=== PATIENT | male | born 1960 | race Caucasian/White ===

== ENCOUNTER 2018-05-08 06:12 | Day surgery (SDC) | payer BC ==
[2018-05-06 19:12] VITALS: BMI 29.5
[2018-05-08] MEDS ORDERED: DEXAMETHASONE SOD PHOSPHATE/PF 10 MG/ML SDV ONE (07:27)
[2018-05-08] MEDS ORDERED: ROPIVACAINE HCL 0.5% 30ML VIAL ONE (07:27)
[2018-05-08] MEDS ORDERED: MIDAZOLAM HCL 2 MG/2 ML SINGLE DOSE VIAL ONE ×2 (07:30)
[2018-05-08] MEDS ORDERED: LIDOCAINE HCL/PF 2% SDV 5ML VIAL ONE (08:00)
[2018-05-08] MEDS ORDERED: PROPOFOL 20 ML ONE ×2 (08:00→08:27)
--- NOTE | 2018-05-08 08:17 | HP ---
Satellite H - Chief Complaint Chief Complaint: left knee pain, instability - Past Medical History Allergies/Adverse Reactions: Allergies Allergy/AdvReac Type Severity Reaction Status Date / Time No Known Allergies Allergy Unverified 05/08/18 06:39 - Current Medications Current Medications: Home Medications Medication Instructions Recorded Rosuvastatin [Crestor -] 5 mg PO DAILY 05/06/18 Sildenafil Citrate [Sildenafil] 20 mg PO DAILY 05/06/18 Oxycodone HCl/Acetaminophen 1 - 2 tab PO Q6H #40 tab MDD 6 05/08/18 [Percocet 5-325 mg Tablet] Satellite Physical Exam - Physical Examination Vital Signs: Vital Signs Period Temp Pulse Resp BP Sys/River Pulse Ox Last 24 Hr 98.7 F 76 16 127/89 97 General Appearance: Well Nourished, Well Developed, Alert & Oriented x3 ENT: Clear Lung: Normal air movement Heart: Regular rate & rhythm Extremities: Other (left knee- + swelling, + ttp ,decr rom, + elpidio, + ant draw, + mcmurrays, nvi MRI + acl rupture, LMT, MMT) Neurological: Intact, Alert, Oriented Satellite Impression/Plan - Impression/Plan Impression: Left knee internal derangement Operative Procedure: left knee arthroscopy with ACL reconstruction using graftlink allograft Date to be Performed: 05/08/18
[2018-05-08] MEDS ORDERED: ceFAZolin SODIUM 1 GM VIAL ONE (08:30)
[2018-05-08] MEDS ORDERED: ceFAZolin SODIUM 1 GM VIAL IVPB ONE (08:31)
[2018-05-08] MEDS ORDERED: DEXAMETHASONE SOD PHOSPHATE 4 MG/1 ML VIAL ONE (08:36)
[2018-05-08] MEDS ORDERED: KETOROLAC TROMETHAMINE 30 MG/1 ML VIAL ONE (09:23)
--- NOTE | 2018-05-08 10:16 | OP ---
Operative Note - Note: Operative Date: 05/08/18 ([facility]) Pre-Operative Diagnosis: left knee internal derangement Operation: left knee arthroscopy with ACL reconstruction using graftlink allograft, PMM, PLM Implants: arthrex graftlink Post-Operative Diagnosis: Same as Pre-op Surgeon: Kristian Calhoun Air Lift Operator: Samir Groves Anesthesiologist/STAFFING OPERATIONS MANAGER: Jamaal Russell Anesthesia: General, Local Specimens Removed: shavings Estimated Blood Loss (mls): 5 Operative Report Dictated: Yes
[2018-05-08] MEDS ORDERED: ONDANSETRON 4 MG/2 ML VIAL IVPUSH PRN (10:30)
[2018-05-08] MEDS ORDERED: LACTATED RINGERS SOLUTION 1,000 ML IV SCH (10:30)
--- NOTE | 2018-05-08 12:16 | OP ---
DATE OF OPERATION: 05/08/2018 PREOPERATIVE DIAGNOSIS: Left anterior cruciate ligament tear. POSTOPERATIVE DIAGNOSIS: Left anterior cruciate ligament tear, plus medial and lateral meniscus tears. SURGICAL PROCEDURE: Arthroscopy, left knee, with anterior cruciate ligament reconstruction with GraftLink and partial medial and lateral meniscectomies. SURGICAL ATTENDING: Kristian Calhoun MD SECURITY FLEX UTILITY OFFICER: LINH Segovia ANESTHESIA: Regional and general.. CLOSURE: A GraftLink with appropriate buttons on either side and 3-0 nylon for skin. ESTIMATED BLOOD LOSS: Negligible. COMPLICATIONS: None. CONDITION: To recovery room in stable condition. DESCRIPTION OF OPERATIVE PROCEDURE: The patient was taken to the operating room on May 08, 2018. Regional and general anesthesia was administered by the anesthesiologist. IV Kefzol was given prophylactically prior to the case. Left lower extremity was prepped and draped in the usual sterile fashion. The superomedial and medial and lateral infrapatellar portal sites all were made with a 15 blade followed by a blunt trocar. Superomedial portal was the outflow trocar, the inferolateral portal was the scope portal, and was the inferomedial portal was the working portal. The scope was placed up to the pouch and visualized to be clean. The medial and lateral gutters were visualized to be clean, and the suprapatellar and trochlea were visualized to be intact. With valgus stress on the knee, the medial compartment was entered and medial meniscus was visualized and probed and found to have a complex tear of its posterior horn. This was debrided back to smooth stable meniscal tissues with a meniscal biter and an arthroscopic shaver. The medial femoral condyle was run and found to be basically intact. In the figure-of-4 position, the lateral compartment was entered. The lateral meniscus was visualized and probed and found to have a large flap tear posteriorly. This was debrided back to smooth stable meniscal tissues with a meniscal biter and an arthroscopic shaver. The lateral femoral condyle was run and found to be intact as was the lateral tibial plateau. At 90 degrees, the ACL was visualized to be completely torn. Its stump was debrided. A notchplasty was then performed gaining sufficient width and height to perform the procedure. A GraftLink with a semitendinosus wrapped over 4 times was prepared on the back table with the appropriate markings and measurements. A FlipCutter was used to drill a wire from the lateral femoral condyle into the knee at the appropriate aspect and the posterior aspect of the notch. This was over reamed with a 10.5 reamer to the appropriate depth leaving the outer cortex intact. A FiberStick suture was then placed from the outside into the knee and retrieved through the anterior portals. Next, the same was done on the tibial side. A guide was placed just anterior to the PCL. A small stab incision was made on the anteromedial and proximal tibia for the outrigger. A FlipCutter was drilled exiting anterior to the PCL. It was flipped and used to drill a 10.5-mm tunnel in the tibia, leaving the outer cortex intact. The cutter was removed, then, a FiberStick suture was placed up that tunnel, exiting the anteromedial portal, as well. The graft was then pulled into the knee using the shuttle sutures, first up into the femur allowing the button to latch onto the lateral cortex. The toggle sutures were then used to toggle the graft into the femoral tunnel onto the appropriate depth. Shuttle sutures were then used to pull the graft into the tibial tunnel. A button was deployed, and the toggle sutures were used to tension the graft both on the femoral side and the tibial side. We kept on alternating, going back from the femur to the tibia, to get excellent tension on the graft and make sure we had sufficient graft inside each tunnel. The knee was taken through a range of motion, found to get a full extension and full flexion with excellent crossing of the PCL and no impingement on the notch. Sutures were cut flush. All the portals were closed using 3-0 nylon. Sterile pressure dressing was mobilized and applied. Patient was awakened from anesthesia and transferred to recovery room in stable condition. No complications. Estimated blood loss was negligible. Estrada [id number]
[2018-05-08 12:24] VITALS: BP 152/71; PULSE 68; TEMP 97.3
--- NOTE | 2018-05-09 15:28 | PATH ---
Surgical Pathology Report Patient Name: DEYANIRA CABALLERO [facility]. Rec. #: [id number] /Age/Gender: 1960 (Age: 57) / M Account: [id number] Location: [facility] SURGICAL Taken: 05/08/2018 Received: 05/08/2018 Reported: 05/09/2018 Physicians: Kristian Calhoun M.D. Specimen(s) Received LEFT KNEE SHAVINGS Clinical History Tear left ACL Final Diagnosis KNEE SHAVINGS, LEFT, ACL RECONSTRUCTION WITH GRAFT LINK: FRAGMENTS OF CARTILAGE, DENSE FIBROCONNECTIVE TISSUE, ADIPOSE TISSUE, AND SYNOVIUM. Electronically Signed Fozia Ca M.D. Gross Description Received in formalin, labeled "left knee shavings," is a 6.3 x 5.0 x 0.8 cm. aggregate of mayes-yellow soft tissue fragments. A software support representative portion is submitted in one cassette. /05/08/2018 saudi05/08/2018
== END 2018-05-08 12:20 | disposition home or self-care (01) ==
LOC: JASU-SURG 06:12
PROVIDERS: ATTEND Orthopaedic Surgery
PROC: 0SBD4ZZ Excision of Left Knee Joint, Percutaneous Endoscopic Approach (ICD-10-PCS; 2018-05-08)
PROC: 0SBD4ZZ Excision of Left Knee Joint, Percutaneous Endoscopic Approach (ICD-10-PCS; 2018-05-08)
PROC: 0MRP4JZ Replacement of Left Knee Bursa and Ligament with Synthetic Substitute, Percutaneous Endoscopic Approach (ICD-10-PCS; principal; 2018-05-08 08:00)
DX: S83.512A Sprain of anterior cruciate ligament of left knee, initial encounter (principal); S83.242A Other tear of medial meniscus, current injury, left knee, initial encounter; S83.282A Other tear of lateral meniscus, current injury, left knee, initial encounter; X58.XXXA Exposure to other specified factors, initial encounter; Y93.9 Activity, unspecified; Y92.9 Unspecified place or not applicable
CPT/HCPCS: 88304-TC; 94760

== ENCOUNTER 2018-12-18 09:21 | Day surgery (SDC) | payer BC ==
[2018-12-16 17:20] VITALS: BMI 31.0
[2018-12-18 09:39] VITALS: PULSE 66
--- NOTE | 2018-12-18 12:04 | HP ---
Satellite [facility] - Chief Complaint Chief Complaint: left shoulder pain - Past Medical History Allergies/Adverse Reactions: Allergies Allergy/AdvReac Type Severity Reaction Status Date / Time No Known Allergies Allergy Unverified 12/16/18 17:15 - Current Medications Current Medications: Home Medications Medication Instructions Recorded Rosuvastatin [Crestor -] 5 mg PO DAILY 05/06/18 Sildenafil Citrate [Sildenafil] 20 mg PO DAILY 05/06/18 Hydrocodone/Acetaminophen 1 each PO Q6H #40 tablet MDD 4 12/18/18 [Hydrocodon-Acetaminoph 7.5-325] Satellite Physical Exam - Physical Examination Vital Signs: Vital Signs Period Temp Pulse Resp BP Sys/River Pulse Ox Last 24 Hr 97.9 F-97.9 F 66-66 18-18 119-119/69-69 97 General Appearance: Well Nourished, Well Developed, Alert & Oriented x3 ENT: Clear Lung: Normal air movement Heart: Regular rate & rhythm Extremities: Other (left shoulder- + ttp, decr rom, + empty can, nvi MRI + chronic rc arthropathy, OA) Neurological: Intact, Alert, Oriented Satellite Impression/Plan - Impression/Plan Impression: left shoulder chronic RC arthropathy Operative Procedure: left reverse TSA Date to be Performed: 12/18/18
[2018-12-18] MEDS ORDERED: ROPIVACAINE HCL 0.5% 30ML VIAL ONE (12:44)
[2018-12-18] MEDS ORDERED: BUPIVACAINE LIPOSOME/PF (EXPAREL) 266 MG/20 ML VIAL ONE (13:06)
[2018-12-18] MEDS ORDERED: BUPIVACAINE HCL/PF 0.5% (5MG/ML) 10 ML VIAL ONE (13:08)
[2018-12-18] MEDS ORDERED: MIDAZOLAM HCL 2 MG/2 ML SINGLE DOSE VIAL ONE ×2 (13:12)
[2018-12-18] MEDS ORDERED: PROPOFOL 20 ML ONE (13:35)
[2018-12-18] MEDS ORDERED: ROCURONIUM BROMIDE 50 MG/5 ML VIAL ONE (13:35)
[2018-12-18] MEDS ORDERED: LIDOCAINE HCL/PF 2% SDV 5ML VIAL ONE (13:37)
[2018-12-18] MEDS ORDERED: DEXAMETHASONE SOD PHOSPHATE 4 MG/1 ML VIAL ONE (13:37)
[2018-12-18] MEDS ORDERED: ceFAZolin SODIUM 1 GM VIAL ONE (14:36)
[2018-12-18] MEDS ORDERED: ceFAZolin SODIUM 1 GM VIAL IVPB ONE (14:41)
[2018-12-18] MEDS ORDERED: ePHEDrine SULFATE 50 MG/1 ML AMPULE ONE (14:58)
--- NOTE | 2018-12-18 17:11 | OP ---
Operative Note - Note: Operative Date: 12/18/18 ([facility]) Pre-Operative Diagnosis: left shoulder chronic RC arthropathy Operation: left reverse TSA Post-Operative Diagnosis: Same as Pre-op Surgeon: You Ross Welt Trimming Machine Operator: Samir Groves Anesthesiologist/COVERING MACHINE TENDER: Colt Bal Anesthesia: General, Local Specimens Removed: humeral head Estimated Blood Loss (mls): 200 Operative Report Dictated: Yes
[2018-12-18] MEDS ORDERED: ONDANSETRON 4 MG/2 ML VIAL IVPUSH PRN (17:19)
[2018-12-18] MEDS ORDERED: oxyCODONE HCL 5 MG TABLET PO PRN ×2 (17:19)
[2018-12-18] MEDS ORDERED: ACETAMINOPHEN 325 MG TABLET (FP) PO SCH (17:30)
[2018-12-18] MEDS ORDERED: LACTATED RINGERS SOLUTION 1,000 ML IV SCH (17:30)
[2018-12-18 18:19] VITALS: BP 88/47; TEMP 97.5
--- NOTE | 2018-12-18 21:01 | OP ---
DATE OF OPERATION: 12/18/2018 PREOPERATIVE DIAGNOSIS: Chronic complete rotator cuff tear, and rotator cuff arthropathy. SURGERY: Left shoulder reverse total shoulder replacement. SURGEON: Yuliana Wren M.D. BIBLIOGRAPHIC SERVICES SPECIALIST: Mirtha Segovia, Colt Bal CRNA ANESTHESIA: Left interscalene block and LMA anesthesia. ANESTHESIOLOGIST: Antonio Vaca M.D. DRAINS: None. COMPLICATIONS: None. SPECIMEN: Left humeral head. BLOOD LOSS: Minimal. BLOOD GIVEN: None. FLUID REPLACEMENT: 1500 mL Plasmalyte. ANTIBIOTICS: He received 2 g IV Ancef as IV prophylaxis at the beginning of the case. IMPLANTS: The humeral stem is a number 12, this is all Drumright reverse total shoulder replacement system. The neck was a 4. The polyethylene component was a 4. The glenosphere was a 36-2 with 4 screws of 16, 20, 20, and 24 mm in length. PROCEDURE LENGTH: Total operative time was about 1 hour and 45 minutes. COMPLICATIONS: There were no complications during the case. DISPOSITION: Patient tolerated the procedure quite well and was brought to the regular recovery room in stable condition. INDICATION: This patient is 58-year-old male with the preoperative diagnosis of long-term chronic left shoulder rotator cuff tear. After understanding the potential risks, complications, alternatives, benefits to surgery versus nonsurgical treatment, the patient elected to undergo this procedure. After extensive preoperative discussion, the patient understands that we are doing a shoulder replacement/reverse total shoulder replacement. We are not fixing the rotator cuff; that is not an option in this situation. The patient will still not have perfect full range of motion of the shoulder; the goal is to eliminate or minimize pain and maximize function. He understands and has realistic expectations. Left interscalene block was performed by Dr. Vaca and Colt Bal CRNA. DESCRIPTION OF PROCEDURE: A left interscalene block was performed. LMA anesthesia was induced. She was placed into the beach-chair position with ample padding throughout. The left upper extremity was prepped and draped in a sterile fashion. A deltopectoral approach incision was marked out using the coracoid and mid aspect of the proximal humerus as landmarks. The incision was made with the No. 15 scalpel blade. Subcutaneous hemostasis was achieved with a Bovie cautery. Dissection was done through the superficial fascia. Blunt dissection was done with my finger in the deltopectoral interval. The cephalic vein was retracted medially. The Gelpi self-retaining retractors were placed into the wound. I found the conjoined tendon off the coracoid and used the Bovie to incise lateral to it. I was then able to cut down to bone and preserve the medial and lateral capsular flaps. The rotator cuff subscapularis was very deficient. I then peeled the soft tissues, including the anterior aspect of the deltoid insertion off the humerus. The biceps tendon was seen to be frayed, degenerated out of its groove, and therefore I did a biceps tenolysis. Appropriate Fukuda and pickle-fork retractors were placed into the wound, exposing the proximal humerus. I was able to easily dislocate it anteriorly. It was extremely arthritic. Next, using the external guide and a broach, I used the oscillating saw to do a cut at the articular margin. Osteophytes were removed with the rongeur. Some soft tissue was removed with the Bovie. I was able to expose the proximal humerus quite well. Next, using the standard technique, using the DocuSpeak Reverse Total Shoulder Replacement System, we used first the starting awl and then the sequential hand broaches until we had cortical chatter. Then we used the humeral stem-shape broaches and mallet. We eventually seated a 12-size stem that had excellent cortical contact and was very stable throughout. We did not need to use the calcar reamer as the humeral cut was at the left angle. Next, our attention was turned to the glenoid. The Bovie was used to remove soft tissue, including some capsular attachments and the labrum. Retractors were placed into the wound to retract the humerus and expose the glenoid. With excellent direct visualization, we then put on the glenoid glenosphere, lining it up appropriately and put in the 3.2-mm guidewire. We went through 2 cortices. We then used the guidewire to do the glenoid reamer. We were able to ream the glenoid until we got bleeding subchondral bone. More bone was taken inferiorly than superiorly, but it was concentric. The guidewire was then removed, and we put on the actual 28-mm glenoid baseplate, held it in place with a 16-mm central screw. Then using the typical standard technique, we put in superior, inferior, and posterior screws, which were 20, 20, and 24 mm in length, respectively. We had excellent compression of the glenoid baseplate against the glenoid and overall concentric fit. Next, we put on a 36-mm glenosphere. This was the actual implant, impacted in place, and it was quite stable. Next, our attention was turned to the humerus. We cleaned up the humeral shaft, put in an actual size-12 humeral press-fit porous-coated stem and used the mallet to put it down to the appropriate level. We then trialed the size of the humeral glenosphere, and it ended up being a 36-mm implant. It was extremely stable. In fact, it was very difficult to dislocate. Next, this trial was removed, and the actual 36-mm humeral glenosphere was placed on, it was reduced, and was extremely stable throughout. The area was copiously irrigated and washed out. The capsule was closed anteriorly with several No. 1 Ti-Cron sutures, the deep fascial layer closed with No. 1 Ti-Cron, and the superficial deltoid fascia closed with 0 Vicryl suture. A 2-0 Vicryl was used to close the deep dermal layer, and final skin reapproximation was done with a running subcuticular 3-0 V-Loc suture. The area was then washed and dried, covered with a 10-inch Aquacel dressing. The patient was extubated. There was total blood loss of 75 mL. There were no complications during the case. The shoulder immobilizer was placed in the operating room, and she was brought to the regular recovery room in stable condition. YULIANA WREN M.D. [id number]
[2018-12-18] MEDS ORDERED: oxyCODONE HCL 10 MG SUSTAINED ACTING TABLET PO SCH (22:00)
--- NOTE | 2018-12-20 17:33 | PATH ---
Surgical Pathology Report Patient Name: DEYANIRA CABALLERO Med. Rec. #: [id number] /Age/Gender: 1960 (Age: 58) / M Account: [id number] Location: AMBULATORY SURG Taken: 12/18/2018 Received: 12/19/2018 Reported: 12/20/2018 Physicians: You Ross M.D. Specimen(s) Received HUMERAL HEAD Clinical History Osteoarthritis Final Diagnosis HEAD OF HUMERUS, EXCISION: HUMERAL HEAD WITH FOCAL DEGENERATIVE CHANGE. Electronically Signed Marc Rowan M.D. Gross Description Received in formalin labeled "head of humerus," is a 5.5 x 5.0 x 2.3 cm portion of bone, consistent with a humoral head. The margin of resection is smooth. No areas of eburnation are identified. The articular surface is mayes-yellow and diffusely granular. The underlying trabecular bone is yellow and hard. A chemical sales representative section is submitted in one cassette, following decalcification. /12/19/2018 saudi12/19/2018
== END 2018-12-18 19:25 | disposition home or self-care (01) ==
LOC: JASUSAT 09:21
PROVIDERS: ATTEND Orthopaedic Surgery
PROC: 0RRK00Z Replacement of Left Shoulder Joint with Reverse Ball and Socket Synthetic Substitute, Open Approach (ICD-10-PCS; principal; 2018-12-18 11:30)
DX: M75.122 Complete rotator cuff tear or rupture of left shoulder, not specified as traumatic (principal); M19.012 Primary osteoarthritis, left shoulder
CPT/HCPCS: 88304-TC; 88311-TC; 94760